=== PATIENT | male | born 1995 | race Caucasian/White ===

== ENCOUNTER 2018-11-15 15:46 | Emergency (ER) | payer OTHER ==
[~2018-11-15] VITALS: Ht 172.7 cm; Wt 81.6 kg
[2018-11-15] MEDS ORDERED: FAMOTIDINE/PF INJ 20 MG/2 ML VIAL IV ONE ×2 (15:55→16:00)
[2018-11-15] MEDS ORDERED: methylPREDNISolone SOD SUCC 125 MG/2ML VIAL ONE (15:55)
[2018-11-15] MEDS ORDERED: diphenhydrAMINE HCL 50 MG/ML VIAL ONE (15:55)
[2018-11-15] MEDS ORDERED: EPINEPHRINE (1:1000) 1 MG/ML AMPUL ONE (15:56)
[2018-11-15] MEDS ORDERED: IV NS 0.9% 1,000 ML BAG IV ONE (16:00)
[2018-11-15] MEDS ORDERED: methylPREDNISolone SOD SUCC 125 MG/2ML VIAL IV ONE (16:00)
[2018-11-15] MEDS ORDERED: EPINEPHRINE (1:1000) MDV 30 MG/30ML VIAL SUBCUT ONE (16:00)
[2018-11-15] MEDS ORDERED: diphenhydrAMINE HCL 50 MG/ML VIAL IV ONE (16:00)
[2018-11-15 17:10] VITALS: BP 110/84
== END 2018-11-15 18:05 | disposition home or self-care (01) ==
LOC: ER 15:46
DX: T63.441A Toxic effect of venom of bees, accidental (unintentional), initial encounter (principal); I10 Essential (primary) hypertension; E03.9 Hypothyroidism, unspecified; Z60.2 Problems related to living alone; Y92.89 Other specified places as the place of occurrence of the external cause
CPT/HCPCS: 96372; 96374; 96375; 99283; J0171 ×2; J1200; J2930; J3490; J7030